=== PATIENT | male | born 1955 | race Caucasian/White ===

== ENCOUNTER 2017-04-24 20:00 | Inpatient (IN) | payer OTHER ==
[~2017-04-24] VITALS: Ht 175.3 cm; Wt 76.7 kg
--- NOTE | ~2017-04-24 | HP ---
Unit #: [id number] #: [id number] Patient: MARIA T ELLIS [id number] [facility] [address] [place] [address] [id number] I MR#: [id number] NAME: MARIA T ELLIS ROOM: P256 Age: 61 Sex: M Admission Date: 04/25/2017 : 1955 Attending Physician: Jamarcus Gerardo M.D. Admitting Physician: Jamarcus Gerardo M.D. Primary Care Physician: Generic Doctor Not In System HISTORY AND PHYSICAL HISTORY OF PRESENT ILLNESS Maria T is a 61 year old admitted to [address] [place] [address] with depression after an intentional overdose of Ibuprofen. He was charcoaled in the emergency room at [facility] and when medically stable transferred to [facility] for psychiatric care. PAST MEDICAL HISTORY 1. Cerebral palsy. 2. Patient is deaf. 3. Hyperlipidemia. 4. GERD. 5. BPH. 6. Hypothyroidism PAST SURGICAL HISTORY Nothing reported. ALLERGIES No known drug allergies. SOCIAL HISTORY He does not smoke, drinks alcohol on occasion, denied illicit drug use. FAMILY HISTORY Medically noncontributory. REVIEW OF SYSTEMS CONSTITUTIONAL: No fever or chills. HEENT: Denies any sore throat, ear pain or runny nose. CARDIOVASCULAR: Denies chest pain, irregular heart rhythm or palpitations. CHEST: Denies shortness of breath or cough. No hemoptysis. GASTROINTESTINAL: Denies nausea, vomiting, diarrhea or chronic constipation. ENDOCRINE: Denies history of increased thirst or urination. No recent significant weight loss or gain. GENITOURINARY: Denies dysuria, frequency, or hematuria. SKIN: Denies any rashes. HEMATOLOGIC: Denies history of increased bleeding or bruising. MUSCULOSKELETAL: Denies any hot, swollen joints. No generalized muscle pain. NEUROLOGIC: Denies problems with vision or speech. No frequent, severe headaches. No numbness, tingling or weakness in any extremities. Denies Unit #: [id number] #: [id number] Patient: MARIA T ELLIS loss of bladder or bowel control. CURRENT MEDICATIONS 1. Desyrel 100 mg q.h.s. 2. Lipitor 40 mg q day 3. Coreg 3.125 mg b.i.d. 4. BuSpar 10 mg b.i.d. 5. Effexor XR 75 mg q day 6. Claritin 10 mg q day 7. Aspirin enteric coated 81 mg q day 8. Flomax 0.4 mg q day 9. Synthroid 0.025 mg q day 10. Milk of Magnesia p.r.n. 11. Maalox p.r.n. 12. Tylenol p.r.n. PHYSICAL EXAMINATION GENERAL: Alert, well-nourished, in no apparent distress. VITAL SIGNS: Blood pressure 150/90, heart rate 80, respirations 16, temperature 98.6. WEIGHT: 169. HEIGHT: 5 foot 9 inches. SKIN: Warm and dry without rash or lesion. HEENT: Normocephalic. TMs not viewed. Oral and nasal passages clear. Conjunctivae clear. Pupils equal, round and reactive to light and accommodation. Extraocular movements intact. NECK: Supple without lymphadenopathy or thyromegaly. HEART: Regular rate and rhythm without murmur. LUNGS: Clear. ABDOMEN: Soft, nontender. : Not done. EXTREMITIES: No evidence of cyanosis, clubbing or edema. Movement of extremities is consistent with CP. NEUROLOGICAL: Unable to complete extended exam. He is in a wheelchair. He does move all extremities. Gait not observed. IMPRESSION Psychiatric admission. RECOMMENDATIONS PSYCHIATRIC: Per psychiatrist. MEDICAL: I see no contraindications to participating in facility's activities. MEDICAL PROGNOSIS Good. MEDICAL CONDITION Stable. Dictated by... Mallika Krueger P.A.-C. for Eleuterio Garner M.D. Unit #: [id number] #: [id number] Patient: MARIA T ELLIS Wallace MELVIN/wendy TD: 04/29/2017 22:35 JOB #: [id number] HISTORY AND PHYSICAL Page 1 of 1 X Mallika Krueger HISTORY AND PHYSICAL
--- NOTE | ~2017-04-24 | PN ---
Unit #: [id number] #: [id number] Patient: MARIA T FERNÁNDEZ [id number] [facility] [address] [place] [address] [id number] MR#: [id number] NAME: MARIA T FERNÁNDEZ ROOM: P256 Age: 61 Sex: M Admission Date: 04/25/2017 : 1955 Attending Physician: Jamarcus Gerardo M.D. Admitting Physician: Jamarcus Gerardo M.D. Primary Care Physician: Dorothy Doctor Not In System [facility] PROGRESS NOTES DATE April 28, 2017 DISCUSSION Mr. Fernández is a 61-year-old white male, who was seen today and chart was reviewed and the case was discussed with the staff. He has been anxious, withdrawn, and seclusive to himself. Meanwhile, he has been cooperative with the treatment recommendations and he has been showing improvement in his depressive symptoms as he has been taking the medications and tolerating them fairly well. MENTAL STATUS EXAMINATION Young white male, who was casually dressed with fair personal hygiene and appears to be in no acute distress or discomfort. He was awake and alert with impaired attention and concentration. His mood is anxious and depressed with a congruent affect. His speech is slow and goal-directed. He denies any suicidal or homicidal ideations. His insight and judgment remain slightly impaired. TREATMENT PLAN 1. We will continue him on his current medications and treatment protocol, and will monitor his response to the medications, and make further adjustments as needed. 2. We will continue to followup. Dictated by... Lester Nuñez/alondra TD: 04/29/2017 08:14 JOB #: [id number] Unit #: [id number] #: [id number] [facility] PRO[facility] NOT[facility] Page 1 of 1 X Jamarcus Gerardo MD PROGRESS NOTE
--- NOTE | ~2017-04-24 | PA ---
Unit #: [id number] #: [id number] Patient: MARIA T FERNÁNDEZ [id number] [facility] [address] [place] [address] [id number] I MR#: [id number] NAME: MARIA T FERNÁNDEZ. ROOM: P256 Age: 61 Sex: M Admission Date: 04/25/2017 : 1955 Date of Assessment: Attending Physician: Jamarcus Gerardo M.D. Admitting Physician: Jamarcus Gerardo M.D. Primary Care Physician: Generic Doctor Not In System PSYCHIATRIC ASSESSMENT DATE OF SERVICE 04/25/2017. IDENTIFYING DATA Mr. Fernández is a 61-year-old white male, who is a resident of [place], [place], and was transferred to from [facility] in [place], [place], where he was taken accompanied by his . CHIEF COMPLAINT "Intentional overdose on ibuprofen." HISTORY OF PRESENT ILLNESS Mr. Fernández is a 61-year-old white male with history of mood disorder, who was taken to the emergency room with intentional overdose on ibuprofen and reports that he took approximately 8 pills, though I suspect that he may have taken more. The patient was charcoaled in the emergency department and was stabilized and transferred to us. The patient does indicate and report increasing depression and anxiety with current living situation and reports feeling hopeless and wanting to end his life, and as such, a recommendation for inpatient treatment was made and the patient was stepped up to the unit. SUBSTANCE ABUSE HISTORY The patient denies any alcohol or drug abuse. PAST PSYCHIATRIC HISTORY The patient has had a history of psychiatric treatment, and review of the medical records indicate that currently he is not active in any treatment and is not seeing a psychiatrist and is not taking any psychotropic medications. PAST MEDICAL HISTORY The patient's medical history is significant for cerebral palsy. The patient is deaf and is communicated with the help of an insurance claims examiner. ALLERGIES No known medication allergies. CURRENT MEDICATIONS None. PERSONAL AND SOCIAL HISTORY A 61-year-old white male, who reports that he is and lives at home Unit #: [id number] #: [id number] Patient: MARIA T FERNÁNDEZ with his and has poor social support system. MENTAL STATUS EXAMINATION Middle-aged white male, who was casually dressed with fair personal hygiene, appears to be in no acute distress or discomfort. He was awake and alert on interaction with intact orientation to time, place, and person. His mood was anxious and depressed with a congruent affect. His speech was slow and restricted in content. His thought processes were disorganized with some looseness of associations and flight of ideas and suicidal ideations. His insight and judgment remain significantly impaired. DIAGNOSTIC IMPRESSION Psychiatric: Major depressive disorder, recurrent, moderate, without psychotic features. Medical: Cerebral palsy and bilateral deafness. Stressors: Moderate psychosocial stressors. TREATMENT PLAN 1. The patient has presented with a history of mood disorder and has been decompensating and will need inpatient hospitalization for safety and stabilization. We will start him back on his home medications. We will adjust the medications and monitor response. 2. Supportive therapy was provided to the patient. 3. Safe, structured, and nourishing environment will be provided. ESTIMATED LENGTH OF STAY 5 to 7 days. ABILITY TO HELP SELF Limited. WILLINGNESS TO HELP SELF The patient appears to be willing to help self. STRENGTHS 1. Communicative. 2. Cooperative. PROBLEMS 1. Chronic dysphoric symptoms. 2. Poor social support system. DISCHARGE CRITERIA This will be contingent upon the patient's ability to show resolution of his depression and anxiety and his ability to stay safe to himself, particularly after discharge from the hospital. Dictated by... Lester Nuñez/igor TD: 04/25/2017 16:39 JOB #: [id number] Unit #: [id number] #: [id number] Patient: MARIA T FERNÁNDEZ PSYCHIATRIC ASSESSMENT Page 1 of 1 X Jamarcus Gerardo MD PSYCHIATRIC ASSESSMENT
--- NOTE | ~2017-04-24 | PN ---
Unit #: [id number] #: [id number] Patient: MARIA T FERNÁNDEZ [id number] [facility] [address] [place] [address] [id number] I MR#: [id number] NAME: MARIA T FERNÁNDEZ ROOM: P256 Age: 61 Sex: M Admission Date: 04/25/2017 : 1955 Attending Physician: Jamarcus Gerardo M.D. Admitting Physician: Jamarcus Gerardo M.D. Primary Care Physician: Dorothy Doctor Not In System [facility] PROGRESS NOTES DATE OF SERVICE: 04/26/2017 SUBJECTIVE Mr. Fernández is a 61-year-old white male with cerebral palsy, mood disorder and hearing impairment, who was seen today and chart was reviewed and case was discussed with the staff. He was seen to be rather anxious, withdrawn, and seclusive to himself, but has been cooperative with treatment recommendations and has been taking the medications and tolerating them fairly well with no reported side effects. MENTAL STATUS EXAMINATION Middle-aged white male, who was casually dressed with fair personal hygiene, appears to be in no acute distress or discomfort. He was awake and alert with impaired attention and concentration. His mood was anxious and depressed with a congruent affect. His speech was slow and restricted in content. He reports having suicidal ideation, but denies any homicidal ideation. His insight and judgment remain slightly impaired. TREATMENT PLAN 1. We will continue his current medications and treatment protocol. We will monitor his response to medications and make further adjustments as needed. 2. We will continue to follow up. Dictated by... Lester Nuñez/igor TD: 04/28/2017 03:27 JOB #: [id number] Unit #: [id number] #: [id number] [facility] Page 1 of 1 X Jamarcus Gerardo MD PROGRESS NOTE
--- NOTE | ~2017-04-24 | PN ---
Unit #: [id number] #: [id number] Patient: MARIA T FERNÁNDEZ [id number] [facility] [address] [place] [address] [id number] I MR#: [id number] NAME: MARIA T FERNÁNDEZ ROOM: P256 Age: 61 Sex: M Admission Date: 04/25/2017 : 1955 Attending Physician: Jamarcus Gerardo M.D. Admitting Physician: Jamarcus Gerardo M.D. Primary Care Physician: Dorothy Doctor Not In System [facility] PROGRESS NOTES DATE 04/27/2017 DISCUSSION Mr. Fernández is a 61-year-old, white male who was seen today and chart was reviewed and case was discussed with the staff. He has been anxious, withdrawn and rather seclusive to himself. Meanwhile, he has been cooperative with the treatment recommendations. He has been taking the medication and tolerating them fairly well with no reported side effects. MENTAL STATUS EXAM An elderly white male who was casually dressed with fair personal hygiene, appears to be in no acute distress or discomfort. He was awake and alert with impaired attention and concentration. His mood was anxious with congruent affect. He denies any suicidal or homicidal ideation. His insight and judgement remains slightly impaired. TREATMENT PLAN 1. We will continue him on his current medications and treatment protocol. We will monitor his response and make further adjustments as needed. 2. We will continue to follow up. Dictated by... Lester Nuñez/wendy TD: 04/28/2017 22:01 JOB #: [id number] Unit #: [id number] #: [id number] Patient: MARIA T [facility]DEZJOHN PROGRESS NOTES Page 1 of 1 X Jamarcus Gerardo MD X PROGRESS NOTE
--- NOTE | ~2017-04-24 | DS ---
Unit #: [id number] #: [id number] Patient: [facility]NDEZ [id number] [facility] [address] [place] [address] [id number] MR#: [id number] NAME: MARIA T FERNÁNDEZ ROOM: [facility] Age: 61 Sex: M Admission Date: 04/25/2017 : 1955 Discharge Date: 04/29/2017 Attending Physician: Jamarcus Gerardo M.D. Primary Care Physician: Generic Doctor Not In System DISCHARGE SUMMARY IDENTIFYING DATA Mr. Fernández is a 61-year-old white male, who is a resident of [place], [place], and was transferred to us from [facility] in [place], [place]. DISCHARGE DIAGNOSES Psychiatric: Major depressive disorder, recurrent, moderate, without psychotic features. Medical: Cerebral palsy, bilateral deafness. Stressors: Mild psychosocial stressors. HISTORY OF PRESENT ILLNESS Please see initial psychiatric evaluation for details. PAST PSYCHIATRIC HISTORY Please see initial psychiatric evaluation for details. PAST MEDICAL HISTORY Please see initial psychiatric evaluation for details. HOSPITAL COURSE The [facility] and was oriented to the hospital environment. Routine p.r.n. medications were initiated, and he was started on a combination of Effexor and BuSpar to help with depression and was closely monitored. He was taking medications regularly and was tolerating them fairly well and was able to show a decent therapeutic response and was denying any suicidal ideations, intent, or plan, and was wanting to go home and was willing to continue treatment on an outpatient basis and as such, it was decided that he will be discharged home and will continue treatment on an outpatient basis. DISCHARGE MEDICATIONS Effexor XR 75 mg a day for depression, BuSpar 10 mg b.i.d. for anxiety. DISCHARGE CONDITION Stable. PROGNOSIS Fair. Dictated by... Jamarcus Gerardo M.D. Unit #: [id number] #: [id number] Patient: MARIA T FERNÁNDEZ IAA/modl TD: 04/29/2017 07:50 JOB #: [id number] DISCHARGE SUMMARY Page 1 of 1 X Jamarcus Gerardo MD DISCHARGE SUMMARY
[2017-04-26 09:36] LABS: BASOPHIL% 0.7 % (0-2.5); EOSINOPHIL# 0.1 X10e3 (0-0.7); EOSINOPHIL% 1.8 % (0.0-7.0); HEMATOCRIT 45.2 % (38.0-50.0); HEMOGLOBIN 15.2 gm/dL (13.0-16.0); LYMPHOCYTE# 2.1 X10e3 (1.0-3.5); LYMPHOCYTE% 29.6 % (17.0-45.0); MEAN CELL VOLUME 89.7 FL (83-96); MEAN CORPUSCULAR HEMOGLOBIN 30.2 PG (28-34); MEAN CORPUSCULAR HGB CONC 33.6 g/dL (30-36); MEAN PLATELET VOLUME 7.7 FL (6.5-11.5); MONOCYTE# 0.4 X10e3 (0-1.0); MONOCYTE% 5.3 % (3.0-12.0); NEUTROPHIL# 4.4 X10e3 (1.5-7.1); NEUTROPHIL% 62.6 % (40-75); PLATELET COUNT 192 X10e3 (140-420); RED BLOOD COUNT 5.04 X10e (3.90-5.60); RED CELL DISTRIBUTION WIDTH 13.8 % (11.0-15.5); WHITE BLOOD COUNT 7.1 X10e3 (4.0-10.5)
[2017-04-26 09:44] LABS: DIFF IND NO
[2017-04-26 10:29] LABS: URINE APPEARANCE TURBID; URINE BILIRUBIN NEG (NEG); URINE BLOOD NEG (NEG); URINE COLOR YELLOW; URINE GLUCOSE NEG (NEG); URINE KETONE NEG (NEG); URINE LEUKOCYTE ESTERASE NEG (NEG); URINE NITRATE NEG (NEG); URINE PH 5.5 (5-8); URINE PROTEIN NEG (NEG); URINE SPECIFIC GRAVITY 1.026 (1.003-1.035); URINE UROBILINOGEN 0.2 MG/DL (NEG)
[2017-04-26 11:00] LABS: ALBUMIN SERUM 3.9 g/dL (3.5-5.0); BILIRUBIN,TOTAL 0.7 mg/dL (0.2-2.0); BUN/CREATININE RATIO 23.75; CALCIUM SERUM 8.7 mg/dL (8.4-10.2); CREATININE SERUM 0.8 mg/dL (0.6-1.4); GLOM FILT RATE Estimated 97.1 mL/min (>60); POTASSIUM 4.3 mmol/L (3.5-5.1); PROTEIN TOTAL SERUM 6.2 g/dL (6.0-8.3)
[2017-04-26 11:42] LABS: AMPHETAMINE NEG (NEG); BARBITURATES NEG (NEG); BENZODIAZEPINES NEG (NEG); COCAINE NEG (NEG); MARIJUANA NEG (NEG); OPIATES NEG (NEG); TRICYCLIC ANTIDEPRESSANTS NEG (NEG); U METHADONE NEG (NEG)
== END 2017-04-29 10:00 | disposition home or self-care (01) | DRG 885 ==
LOC: P2L 04-25 01:35
PROVIDERS: Psychiatry & Neurology Psychiatry
DX: F33.1 Major depressive disorder, recurrent, moderate (principal); R45.851 Suicidal ideations; H91.93 Unspecified hearing loss, bilateral; G80.9 Cerebral palsy, unspecified; T39.312D Poisoning by propionic acid derivatives, intentional self-harm, subsequent encounter; E78.5 Hyperlipidemia, unspecified; K21.9 Gastro-esophageal reflux disease without esophagitis; E03.9 Hypothyroidism, unspecified; N40.0 Benign prostatic hyperplasia without lower urinary tract symptoms
CPT/HCPCS: 80053; 80307; 81003; 85025